=== PATIENT | male | born 1945 | race Caucasian/White ===

== ENCOUNTER 2019-12-25 15:11 | Inpatient (IN) | payer OTHER ==
[~2019-12-25] VITALS: Ht 180.3 cm; Wt 95.3 kg
[2019-12-25 15:24] VITALS: BP 139/85
[2019-12-25] MEDS ORDERED: METFORMIN HCL500 M3 PO (15:26)
[2019-12-25] MEDS ORDERED: HUMALOG100 UNIT/1 SUBQ (15:26)
[2019-12-25] MEDS ORDERED: LANTUS SUBQ (15:26)
[2019-12-25 16:18] LABS: BE -2.9 mmol/L (-2 to +3); PCO2 33.1 mmHg (35.0-45.0); PO2 79.1 mmHg (75.0-100.0); pH 7.415 (7.340-7.450)
[2019-12-25 16:25] LABS: ABSOLUTE LYMPHOCYTES 0.9 thou/uL (0.8-5.3); ABSOLUTE MONOCYTES 0.6 thou/uL (0.0-1.2); ABSOLUTE NEUTROPHILS 4.6 thou/uL (1.6-8.1); BASOPHILS 0.3 %; HEMATOCRIT 43.1 % (42.0-52.0); HEMOGLOBIN 14.3 gm/dL (14.0-18.0); MCH 28.3 pg (26.0-34.0); MCHC 33.2 g/dL (28.0-37.0); MCV 85.2 fL (80.0-100.0); MONOCYTES 9.3 %; MPV 7.1 fl. (7.2-11.1); NUCLEATED RBCS 0 /100WBC; PLATELET COUNT* 206 thou/uL (150-400); POLYS 75.4 %; RBC 5.06 mil/uL (4.50-6.00); RDW-CV 12.8 % (10.5-14.5); WBC 6.1 thou/uL (4.0-11.0)
[2019-12-25 16:40] LABS: CREATININE 1.4 mg/dL (0.6-1.3); POTASSIUM 3.9 mmol/L (3.5-5.1)
[2019-12-25 16:44] LABS: ALBUMIN 3.1 g/dL (3.4-5.0); MAGNESIUM 1.6 mg/dL (1.8-2.4); TOTAL BILIRUBIN 0.4 mg/dL (<0.1-1.0); TOTAL PROTEIN 7.3 g/dL (6.4-8.2)
--- NOTE | 2019-12-25 16:57 | EKG ---
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
[2019-12-25 19:42] VITALS: BP 151/76
[2019-12-25 19:59] LABS: URINE BILIRUBIN NEGATIVE (Negative); URINE BLOOD TRACE (Negative); URINE CLARITY CLEAR; URINE COLOR YELLOW; URINE GLUCOSE-RANDOM 3+ (Negative); URINE KETONES TRACE (Negative); URINE LEUKOCYTES-REFLEX NEGATIVE (Negative); URINE NITRITE-REFLEX NEGATIVE (Negative); URINE PROTEIN TRACE (Negative); URINE SPECIFIC GRAVITY 1.015 (1.005-1.030); URINE UROBILINOGEN 0.2 E.U./dl (0.2-1.0)
[2019-12-25 20:15] VITALS: BP 132/85
[2019-12-26] VITALS: BP 137/68
[2019-12-26 04:00] VITALS: BP 138/73
[2019-12-26 08:00] VITALS: BP 144/97
[2019-12-26 12:25] VITALS: BP 130/73; BP 179/54
[2019-12-26 15:11] LABS: ABSOLUTE LYMPHOCYTES 1.2 thou/uL (0.8-5.3); ABSOLUTE MONOCYTES 0.5 thou/uL (0.0-1.2); ABSOLUTE NEUTROPHILS 3.3 thou/uL (1.6-8.1); BASOPHILS 0.5 %; EOSINOPHILS 0.2 %; HEMATOCRIT 41.8 % (42.0-52.0); HEMOGLOBIN 14.3 gm/dL (14.0-18.0); LYMPHOCYTES 24.6 %; MCH 28.5 pg (26.0-34.0); MCHC 34.1 g/dL (28.0-37.0); MCV 83.5 fL (80.0-100.0); MONOCYTES 9.3 %; MPV 6.9 fl. (7.2-11.1); NUCLEATED RBCS 0 /100WBC; PLATELET COUNT* 178 thou/uL (150-400); POLYS 65.4 %; RBC 5.01 mil/uL (4.50-6.00); RDW-CV 12.5 % (10.5-14.5)
[2019-12-26 15:19] LABS: PROTIME 9.9 Seconds (9.20-11.50)
--- NOTE | 2019-12-26 15:30 | CON ---
[address] [address] CONSULTATION Name: CHANDAN LOVELL Room: [address] IN M.R.#: [id number] Admission: 12/25/19 Attend Phys: Nona Raphael MD Discharge: Date of : 47 Report #: [id number] THIS REPORT FOR: //name// cc: Scott Ruby MD, John MD ~ THIS REPORT FOR: //name// CC: Scott Raphael REQUESTING PHYSICIAN: Nona Raphael MD INDICATION FOR CONSULTATION: COVID-19. HISTORY OF PRESENT ILLNESS: A 74-year-old gentleman. He is a lifetime nonsmoker. He does not have a history of cardiac or respiratory disease. The patient does have a history of uncontrolled diabetes. His had recently tested positive for COVID-19. The patient now reports that he started having mild shortness of breath on exertion, also did develop a high-grade fever up to 38 degrees Celsius and has been having a dry cough for the last few days. The patient therefore decided to get tested for COVID-19. He had the test performed on Sunday. He got the results back yesterday and was told that it is positive for COVID-19. The patient subsequently came over to this hospital last evening. There was a COVID-19 antigen rapid repeated upon his presentation to the Emergency Room. It is positive again. The patient at this time is not complaining of shortness of breath, although he had shortness of breath earlier. He is on room air; however, he continues to have significant dry cough. He did have a fever up to 38.1 degrees Celsius this afternoon. Earlier, he has had chills as well. He has no chest pain. There is no swelling of lower extremities. There is no calf pain. I asked him 12 questions for review of systems, he answers to the negative except as mentioned. The patient already has been started on remdesivir. Also, he has been fluid resuscitated. There are significant abnormalities on his electrolytes noted, done yesterday. The patient at this time is hemodynamically stable. PAST MEDICAL HISTORY: Diabetes. The patient is significantly hyperglycemic. Colon surgery 20 years ago. CURRENT MEDICATIONS: List in [employer] reviewed. HOME MEDICATIONS: In [employer] reviewed. ALLERGIES: No known drug allergies. SOCIAL HISTORY: Lifetime nonsmoker. No known history of heavy [place] [address] CONSULTATION Name: CHANDAN LOVELL Room: [address]#: [id number] Admission: 12/25/19 Attend Phys: Nona Raphael MD Discharge: Date of : 47 Report #: [id number] FAMILY HISTORY: His also has COVID-19. PHYSICAL EXAMINATION: GENERAL: He is alert, awake, and oriented. Did have a dry cough during exam. Does not appear to be in any distress. VITAL SIGNS: Has a pulse of 106, blood pressure 130/73, respiratory rate 16-17, high-grade fever at 38.1. He is not on supplemental oxygen. He has been saturating in the high 90s. HEENT: Head is normocephalic and atraumatic. NECK: Does not show raised JVP. CHEST: Clear to auscultation. HEART: Regular, no murmur. ABDOMEN: Soft and nontender. EXTREMITIES: Lower extremities show no edema, no calf tenderness. There are some small varicose veins noted. NEUROLOGICAL: He moves all extremities bilaterally equally and spontaneously with no focal deficit identified. LABORATORY DATA: The patient's chest x-ray from yesterday is reviewed and compared with the chest x-ray done today. There are small patchy infiltrates noted, most prominent in the right middle lobe and the left lower lobe. I do not, however, see any large infiltrates. There is no pulmonary vascular congestion. The patient's lab work done yesterday, which does show creatinine elevated to 1.4, significant hyperglycemia, magnesium of only 1.6, sodium of 125, in [facility] reviewed. The patient since then has been fluid resuscitated. CBC also in [facility] reviewed. Arterial blood gas, which shows a mild metabolic acidosis, compensated, in [facility] reviewed. COVID-19 antigen is positive. Urinalysis is negative for nitrite and urine leukocyte esterase was also negative. He does have protein, blood, and ketones in the urine. ASSESSMENT/PLAN: 1. COVID-19. The patient has already been started on remdesivir. I fully agree with this. There is also survival benefit in administration of corticosteroids. I therefore went ahead and started with dexamethasone at 6 mg daily. Considering significant hyperglycemia, I have been conservative in the dose of dexamethasone; however, it does appear to me that the patient is likely to respond favorably to corticosteroids and therefore if the patient's respiratory status worsens, I will have a fairly low threshold of significantly increasing the dose of his steroid. The patient already is significantly hyperglycemic and therefore I would expect this hyperglycemia to worsen. With the use of dexamethasone, I recommend administering more insulin accordingly. 2. Pulmonary infiltrates. The patient does have some infiltrates on the chest x-ray, but these are small in size. I do not see any large infiltrates. The primary etiology of these infiltrates appears to be COVID-19 and the therapy is as above. As secondary bacterial infection will be possible, I agree with [address] [address] CONSULTATION Name: CHANDAN LOVELL Room: [address] [place] .R.#: [id number] Admission: 12/25/19 Attend Phys: Nona Raphael MD Discharge: Date of : 47 Report #: [id number] continuing broad-spectrum antibiotics. He is on Zithromax and has been on ceftriaxone. We will continue the same. 3. Uncontrolled diabetes. See discussion as above. 4. Acute renal insufficiency and hyponatremia with hypomagnesemia. He has received IV fluids since the last set of labs was performed. I will go ahead and repeat labs now and then address accordingly. 5. Deep venous thrombosis prophylaxis. Lovenox. 6. Clostridium difficile prophylaxis. Florastor. Thanks for this consultation. <ELECTRONICALLY SIGNED> By: Noah Archuleta MD 12/26/19 1530 1358 1422Atracy Archuleta MD /nt
[2019-12-26 15:34] LABS: ALBUMIN 2.8 g/dL (3.4-5.0); CALCIUM 8.5 mg/dL (8.5-10.1); CREATININE 1.1 mg/dL (0.6-1.3); MAGNESIUM 1.7 mg/dL (1.8-2.4); PHOSPHORUS* 2.1 mg/dL (2.5-4.9); POTASSIUM 4.2 mmol/L (3.5-5.1); TOTAL BILIRUBIN 0.3 mg/dL (<0.1-1.0); TOTAL PROTEIN 6.7 g/dL (6.4-8.2)
[2019-12-26 19:55] VITALS: BP 125/97
[2019-12-27 04:00] VITALS: BP 131/75
[2019-12-27 06:07] LABS: ABSOLUTE MONOCYTES 0.5 thou/uL (0.0-1.2); ABSOLUTE NEUTROPHILS 3.7 thou/uL (1.6-8.1); BASOPHILS 0.7 %; EOSINOPHILS 0.1 %; HEMATOCRIT 42.6 % (42.0-52.0); HEMOGLOBIN 14.4 gm/dL (14.0-18.0); MCH 28.2 pg (26.0-34.0); MCHC 33.9 g/dL (28.0-37.0); MCV 83.4 fL (80.0-100.0); MONOCYTES 8.7 %; MPV 6.6 fl. (7.2-11.1); NUCLEATED RBCS 0 /100WBC; PLATELET COUNT* 196 thou/uL (150-400); POLYS 71.5 %; RBC 5.11 mil/uL (4.50-6.00); RDW-CV 12.9 % (10.5-14.5); WBC 5.2 thou/uL (4.0-11.0)
[2019-12-27 06:38] LABS: CALCIUM 8.5 mg/dL (8.5-10.1); CREATININE 1.1 mg/dL (0.6-1.3); MAGNESIUM 1.6 mg/dL (1.8-2.4); POTASSIUM 4.5 mmol/L (3.5-5.1)
[2019-12-27 08:00] VITALS: BP 106/63
== END 2019-12-27 12:55 | disposition left against medical advice (07) | DRG 177 ==
LOC: M.ERS 15:11 → M.2W 17:06 → M.TBA-ER 17:06 → M.2W 19:11
PROVIDERS: Internal Medicine; Internal Medicine Critical Care Medicine; Personal Emergency Response Attendant; ADMIT Internal Medicine; ATTEND Internal Medicine
DX: U07.1 COVID-19 (principal); J12.89 Other viral pneumonia; J96.00 Acute respiratory failure, unspecified whether with hypoxia or hypercapnia; E87.2 Acidosis; R65.10 Systemic inflammatory response syndrome (SIRS) of non-infectious origin without acute organ dysfunction; E87.1 Hypo-osmolality and hyponatremia; E11.65 Type 2 diabetes mellitus with hyperglycemia; N28.9 Disorder of kidney and ureter, unspecified; E83.42 Hypomagnesemia; Z90.49 Acquired absence of other specified parts of digestive tract; Z79.4 Long term (current) use of insulin; Z79.84 Long term (current) use of oral hypoglycemic drugs

== ENCOUNTER 2019-12-27 14:42 | Inpatient (IN) | payer OTHER ==
[~2019-12-27] VITALS: Ht 180.3 cm; Wt 94.8 kg
[~2019-12-27 14:42] MED LIST: HUMALOG100 UNIT/1 SUBQ; LANTUS SUBQ; METFORMIN HCL500 M3 PO
[2019-12-27 14:57] VITALS: BP 118/81
[2019-12-27 16:00] VITALS: BP 96/66
--- NOTE | 2019-12-27 18:59 | NUR ---
PT READMITTED TO TELE FLOOR AT 15:15. DENIES PAIN. VSS. SEE CHART. ACCUCHECK DONE. MEDSURG STATUS. ADMISSION ORDERS IN PER DR ORDER. ISOLATION MAINTAINED. JENIFER CONTINUE TO MONITOR.
[2019-12-27 19:55] VITALS: BP 102/68
[2019-12-28 04:12] VITALS: BP 140/62
--- NOTE | 2019-12-28 04:25 | NUR ---
ASSUMED CARE OF PT AT 1900. PT IS ALERT AND ORIENTED. VSS. PERRLA. NO COMPLAINTS OF PAIN. PT IS ON ROOM AIR. PT IS IN SINUS RYTHM ON THE TELEMETRY. PT IS RESTING COMFORTABLY IN BED. RESPIRATIONS ARE EVEN AND NONLABORED. WILL CONTINUE TO MONITOR PT.
[2019-12-28 08:00] VITALS: BP 107/68
[2019-12-28 13:11] LABS: HEMATOCRIT 43.1 % (42.0-52.0); HEMOGLOBIN 14.6 gm/dL (14.0-18.0); MCH 28.3 pg (26.0-34.0); MCHC 33.9 g/dL (28.0-37.0); MCV 83.4 fL (80.0-100.0); MPV 7.1 fl. (7.2-11.1); NUCLEATED RBCS 0 /100WBC; PLATELET COUNT* 214 thou/uL (150-400); RBC 5.17 mil/uL (4.50-6.00); RDW-CV 12.9 % (10.5-14.5); WBC 6.5 thou/uL (4.0-11.0)
[2019-12-28 13:24] LABS: ALBUMIN 2.8 g/dL (3.4-5.0); CALCIUM 9.1 mg/dL (8.5-10.1); CREATININE 1.2 mg/dL (0.6-1.3); POTASSIUM 4.6 mmol/L (3.5-5.1); TOTAL BILIRUBIN 0.2 mg/dL (<0.1-1.0); TOTAL PROTEIN 6.9 g/dL (6.4-8.2)
[2019-12-28 14:02] LABS: ABSOLUTE LYMPHOCYTES 0.8 thou/uL (0.8-5.3); ABSOLUTE MONOCYTES 0.7 thou/uL (0.0-1.2); ATYPICAL LYMPHS 1 %
[2019-12-28 14:03] LABS: PLATELET ESTIMATE ADEQUATE
[2019-12-28 16:00] VITALS: BP 123/66
--- NOTE | 2019-12-28 17:57 | NUR ---
ASSUNED PT CARE AT 0715 AM. PT IS AO*4. ON RA, MEDSURG STATUS. DENIES PAIN. ACCUCHECK. VSS. UP TO CHAIR. UP AD JAVIER. AMBULATION ENCOURAGED. PT HAS GOOD APPETITE AND MAINTAINS PROPER HYDRATION. WILL CONTINUE TO MONITOR
--- NOTE | 2019-12-28 18:28 | NUR ---
pt complains od blurred vision. pt was wondering if it could be due to the meds that he is getting. was notified. referred to pharmacy. [facility] was contacted.
--- NOTE | 2019-12-28 19:14 | NUR ---
protonix and zofran d/c per doctor due to patient complaining of blurred vision
[2019-12-28 20:00] VITALS: BP 120/68
--- NOTE | 2019-12-29 05:01 | NUR ---
ASSUMED PT CARE AT APPROX 1930. PT IS AWAKE AND ORIENTED X4. PT IS NOT IN RESPIRATORY DISTRESS, NO DESATURATIONS NOTED. PT IS ABLE TO SLEEP MOST OF THE NIGHT. CALL LIGHT WITHIN REACH. HOURLY ROUNDING DONE FOR PT SAFETY.
[2019-12-29 05:44] LABS: ABSOLUTE LYMPHOCYTES 1.7 thou/uL (0.8-5.3); ABSOLUTE MONOCYTES 0.8 thou/uL (0.0-1.2); ABSOLUTE NEUTROPHILS 3.4 thou/uL (1.6-8.1); BASOPHILS 0.2 %; EOSINOPHILS 0.1 %; HEMATOCRIT 40.9 % (42.0-52.0); HEMOGLOBIN 13.7 gm/dL (14.0-18.0); LYMPHOCYTES 28.4 %; MCH 27.8 pg (26.0-34.0); MCHC 33.5 g/dL (28.0-37.0); MCV 83.2 fL (80.0-100.0); MONOCYTES 13.8 %; MPV 7.2 fl. (7.2-11.1); NUCLEATED RBCS 0 /100WBC; PLATELET COUNT* 226 thou/uL (150-400); POLYS 57.5 %; RBC 4.91 mil/uL (4.50-6.00); RDW-CV 12.8 % (10.5-14.5); WBC 5.8 thou/uL (4.0-11.0)
[2019-12-29 05:55] LABS: CALCIUM 8.6 mg/dL (8.5-10.1); CREATININE 1.2 mg/dL (0.6-1.3); POTASSIUM 4.6 mmol/L (3.5-5.1)
[2019-12-29 08:00] VITALS: BP 128/70
[2019-12-29 13:52] LABS: MAGNESIUM 1.6 mg/dL (1.8-2.4); PHOSPHORUS* 3.1 mg/dL (2.5-4.9)
--- NOTE | 2019-12-29 15:14 | NUR ---
Possible for pt to be ready to dc home with son tomorrow. SW called pt son and left detailed message about dc planning and requested call back with any questions or concerns. During rounds this morning, Dr Ambrocio stated that he does not anticipate pt to have any CM dc needs. SW to remain available to assist with safe dc planning if needs arise.
[2019-12-29 16:15] VITALS: BP 116/74
--- NOTE | 2019-12-29 18:35 | NUR ---
PT RESTED T/O DAY. C/O PLEURAL PAIN TO LEFT SIDE THAT WAS RELIEVD WITH FELIZ MEDS. PT TO HAVE AM CXR, COMPLETE ABX AND MAY POSSIBLY DC TOMORROW. CLWR.WCTM
[2019-12-29 20:22] VITALS: BP 123/67
[2019-12-30] VITALS: BP 129/79
[2019-12-30 04:00] VITALS: BP 167/45
[2019-12-30 05:17] LABS: ABSOLUTE LYMPHOCYTES 1.8 thou/uL (0.8-5.3); ABSOLUTE NEUTROPHILS 4.7 thou/uL (1.6-8.1); BASOPHILS 0.1 %; HEMATOCRIT 40.5 % (42.0-52.0); HEMOGLOBIN 14.2 gm/dL (14.0-18.0); MCV 82.9 fL (80.0-100.0); MONOCYTES 13.5 %; MPV 6.7 fl. (7.2-11.1); NUCLEATED RBCS 0 /100WBC; PLATELET COUNT* 241 thou/uL (150-400); POLYS 62.4 %; RBC 4.89 mil/uL (4.50-6.00); RDW-CV 12.9 % (10.5-14.5); WBC 7.5 thou/uL (4.0-11.0)
[2019-12-30 05:28] LABS: ALBUMIN 2.6 g/dL (3.4-5.0); CALCIUM 8.6 mg/dL (8.5-10.1); CREATININE 1.1 mg/dL (0.6-1.3); MAGNESIUM 1.6 mg/dL (1.8-2.4); POTASSIUM 4.6 mmol/L (3.5-5.1); TOTAL BILIRUBIN 0.3 mg/dL (<0.1-1.0); TOTAL PROTEIN 6.4 g/dL (6.4-8.2)
--- NOTE | 2019-12-30 06:51 | NUR ---
ASSUMED PT CARE AT 1915. NURSING ASSESSMENT COMPLETED AT START OF SHIFT. PT VOICED NO CONCERNS THIS SHIFT. NO C/O SOA. NO COUGHING THIS SHIFT. HOURLY ROUNDING COMPLETED. CALL LIGHT WITHIN REACH. PT REMAINS IN ENHANCED PRECAUTIONS.
[2019-12-30 07:54] VITALS: BP 126/69
[2019-12-30 12:09] VITALS: BP 126/69
--- NOTE | 2019-12-30 12:18 | NUR ---
ASSUMED PT CARE AT 0715 REPORT RECEIVED FROM NURSE. PT IS AOX4. ON RA. MEDICAL SURGICAL STATUS. UP AD JAVIER. DISCHARGE ORDERED. ACCUCHECK. IV ANTIVIRAL AND ANTIBIOTIC GIVEN. VSS. DENIES PAIN.
--- NOTE | 2019-12-30 12:25 | NUR ---
Pt to dc home with son today, no case management needs expressed.
--- NOTE | 2019-12-30 13:29 | NUR ---
PT LEFT UNIT AT 1320 ACCOMPANIED BY THIS NURSE, ON WHEELCHAIR
== END 2019-12-30 13:20 | disposition home or self-care (01) | DRG 177 ==
LOC: M.ERS 14:42 → M.2W 15:31
PROVIDERS: Internal Medicine Critical Care Medicine; ADMIT Internal Medicine; ATTEND Internal Medicine
DX: U07.1 COVID-19 (principal); J96.01 Acute respiratory failure with hypoxia; R65.11 Systemic inflammatory response syndrome (SIRS) of non-infectious origin with acute organ dysfunction; J12.89 Other viral pneumonia; E87.1 Hypo-osmolality and hyponatremia; E11.65 Type 2 diabetes mellitus with hyperglycemia; E83.42 Hypomagnesemia; I10 Essential (primary) hypertension; Z79.4 Long term (current) use of insulin; Z79.84 Long term (current) use of oral hypoglycemic drugs